=== PATIENT | female | born 1990 | race Caucasian/White ===

== ENCOUNTER 2023-02-28 20:31 | Emergency (ER) | payer MEDICAID, SELFPAY ==
[2023-02-28 20:46] VITALS: BP 144/88; PULSE 74; RESP 18; TEMP 36.6; O2SAT 98; BMI 33.5
[2023-02-28 21:00] VITALS: BP 145/70; PULSE 67; O2SAT 98
--- NOTE | 2023-02-28 21:09 | PC.NURSE ---
rounded on pt nothing needed at this time,call light at bs
--- NOTE | 2023-02-28 21:10 | HMH.EDGENADL ---
Discharge Plan Disposition Patient Disposition: Home, Self-Care Condition: Good Referrals Follow up/Referrals: Davion Adrian [Primary Care Provider] - See instructions Activity Restrictions/Add. Instructions Additional Instructions/Restrictions: Take Tylenol 1000 mg every 6 hours (4 times daily) and ibuprofen 400 mg every 6 hours (4 times daily) as needed with food and water to prevent GI upset and kidney damage. If you have any worsening of your condition or any other concerning signs or symptoms, return to the emergency department or your primary care doctor for further evaluation. Clinical Impressions Clinical Impression: Migraine Stand Alone Forms Stand Alone Forms: Work/School Release Instructions Patient Instructions: DI for Migraine Discharge ED Provider: Tcaos Thompson General Adult HPI General Chief complaint: Headache Stated complaint: headaches Time Seen by Provider: 02/28/23 20:45 Mode of Arrival: Ambulatory Source of Information: Patient Limitations: No Limitations Description of Symptoms (Recalled from ER Triage Doc. by RN): pt states she has had a ALEJANDRO for the past ten days. pt c/o pressure in her forehead, sinuses, teeth, bilateral ear aches, and nausea. pt states pain is 9/10 pt state she went to [facility] ED on 02/25 and saw her pcp on 02/26. pcp dx with sinus ALEJANDRO and put her on amoxicillin and steroids. History of Present Illness HPI narrative: This is a 32-year-old female with no past medical history presenting with headache. Headache started about 10 days prior to arrival. Has been waxing and waning, but currently severe in intensity, 8-9 out of 10, does not radiate. Associated with frontal pain, dental pain. She denies vision changes, difficulty or pain with range of motion neck, fevers or chills, vomiting, abdominal or chest pain, rash, any head trauma, or any other concerns. Currently taking antibiotic and steroid for presumed sinusitis. Related Data Allergies Allergy/AdvReac Type Severity Reaction Status Date / Time No Known Allergies Allergy Verified 02/28/23 20:55 [facility] Disclaimer: The information contained in this section may have been updated after the patient was seen, as this information can be updated by other users. Social History (Updated 02/28/23 @ 22:50 by Tacos Thompson MD) Smoking Status: Never smoker alcohol intake: never current occupational status: employed Travel in the last 8 weeks: None ROS Obtained: Yes All systems reviewed & no additional complaints except as documented Physical Exam General General appearance: alert, in no apparent distress and other ( ) Head Head exam: atraumatic and normocephalic Eye Eye exam: Present normal appearance, PERRL and EOMI ENT ENT exam: Present mucous membranes moist Neck Neck exam: Present normal inspection, full ROM and trachea midline Respiratory Respiratory exam: Absent respiratory distress, wheezes, stridor, accessory muscle use or prolonged expiratory phase Cardiovascular Cardiovascular exam: Present regular rate and normal rhythm Abdominal Exam Abdominal exam: Present soft; Absent distention, tenderness, guarding, rebound, rigidity or normal bowel sounds Extremities Exam Extremities exam: Absent edema Neurological Exam Neurological exam: Present alert, oriented X3, CN II-XII intact and normal gait; Absent motor sensory deficit Skin Skin exam: Present warm and dry; Absent diaphoresis or erythema Medical Decision Making Medical Records Medical records reviewed: Yes I reviewed the patient's medical records. Davy Inquiry Pt receiving controlled substance: No Davy was queried for this patient: No Vital Signs: 02/28/23 20:46 02/28/23 21:00 02/28/23 21:30 Temperature 97.8 F Temperature Source Oral Pulse Rate 67 61 Pulse Rate [Right] 74 Respiratory Rate 18 Blood Pressure 145/70 H 131/85 Blood Pressure [Right Arm] 144/88 H Blood Pressure Mean 96 98 Blood Pressure Mean
--- NOTE | 2023-02-28 21:12 | ECG_ITS ---
APPROVED REPORT Exam: Resting ECG HR:57 bpm ECG Measurements Heart Rate 57 AXES AK 151 P 50 QRSd 94 QRS 56 QT 421 T 30 QTc 416 Conclusion SINUS BRADYCARDIA BORDERLINE ECG UNCONFIRMED REPORT Electronically signed by : Swapnil Ron MD 03/01/2023 16:17:01
[2023-02-28 21:30] VITALS: BP 131/85; PULSE 61; O2SAT 98
[2023-02-28 21:41] VITALS: BP 151/95; PULSE 74; O2SAT 96
[2023-02-28 22:01] VITALS: BP 127/87; PULSE 68; O2SAT 98
--- NOTE | 2023-02-28 22:43 | PC.NURSE ---
bedside with pt who states she is feeling better
[2023-02-28 23:06] VITALS: BP 128/72; PULSE 76; RESP 16; TEMP 36.7
== END 2023-02-28 23:13 | disposition home or self-care (01) ==
PROVIDERS: Emergency Provider Emergency Medicine; PCP Family Medicine
DX: G43.919 Migraine, unspecified, intractable, without status migrainosus (principal)
CPT/HCPCS: 93005; 93041; 96361; 96374; 96375; 99284; J0131

== ENCOUNTER → 2023-05-20 23:49 | Outpatient (CLI) | payer MEDICAID, SELFPAY ==
[2023-05-20 18:25] LABS: Alanine Aminotransferase 21 U/L (12-78); Albumin Level 4.1 g/dl (3.5-5.0); Albumin/Globulin Ratio 1.4 (1.1-1.8); Alkaline Phosphatase 49 U/L (38-126); Anion Gap 12.9 mEq/L (5-15); Aspartate Amino Transferase 30 U/L (14-36); Bilirubin,Total 0.3 mg/dl (0.2-1.3); Blood Urea Nitrogen 15 mg/dl (7-17); Calcium 9.4 mg/dl (8.4-10.2); Carbon Dioxide 26 mmol/L (22.0-30.0); Chloride 107 mmol/L (98-107); Chol/HDL Ratio 3.6 (1-3.5); Cholesterol 157 mg/dl (140-200); Estimated Glomerular Filt Rate 83 ml/min (>60); GFR (African American) 101 ML/MIN (>60); Glucose 91 mg/dl (74-100); HDL Cholesterol 44 mg/dl (40-60); Potassium 3.9 mmoL/L (3.5-5.1); Sodium 142 mmol/L (136-145); Total Protein,Serum 7.1 g/dl (6.3-8.2); Triglycerides 96 mg/dl (30-150); VLDL Cholesterol 19 mg/dL (0-40)
[2023-05-20 18:36] LABS: Direct LDL Cholesterol 90.99 mg/dL (100-129)
[2023-05-20 18:39] LABS: Basophils # 0.1 K/mm3 (0-0.2); Eosinophils # 0.2 K/mm3 (0.0-0.4); Eosinophils % 2.4 % (0.1-12.0); Hematocrit 38.7 % (37.0-47.0); Lymphocytes # 2.9 K/mm3 (0.7-4.5); Lymphocytes % 33.2 % (10-50); Mean Corpuscular HGB Conc 33.6 g/dL (31.8-35.4); Mean Corpuscular Hemoglobin 31.2 pg (27.0-31.2); Mean Platelet Volume 9.9 fl (7.4-10.4); Monocytes # 0.7 K/mm3 (0.1-1.0); Monocytes % 7.6 % (1.7-9.3); Neutrophils # 4.8 K/mm3 (1.8-7.8); Neutrophils % 55.8 % (37.0-80.0); Platelet Count 296 K/mm3 (142-424); Red Blood Count 4.16 M/mm3 (4.20-5.40); Red Cell Distribution Width 13.1 % (11.5-17.5); White Blood Count 8.6 K/mm3 (4.8-10.8)
[2023-05-20 18:41] LABS: 25-OH Vitamin D, Total 26.2 ng/mL (30-100)
[2023-05-20 18:42] LABS: T4 (Thyroxine) 10.1 ug/dl (5.53-11.0)
[2023-05-20 18:56] LABS: Thyroid Stimulating Hormone 2.76 uIU/mL (0.465-4.68)
== END ==
LOC: LAB.DROPOF 23:50
PROVIDERS: PCP Family Medicine; Visit Provider Emergency Medicine
DX: E55.9 Vitamin D deficiency, unspecified (principal); R53.83 Other fatigue; Z68.35 Body mass index [BMI] 35.0-35.9, adult
CPT/HCPCS: 80053; 80061; 82306; 84436; 84443; 85025

== ENCOUNTER → 2023-06-18 14:50 | Outpatient (CLI) | payer MEDICAID, SELFPAY ==
[2023-06-18 14:13] LABS: Amphetamine/Metha Screen,Urine Positive ng/ml (<1000)
[2023-06-18 14:14] LABS: Barbiturates Screen,Urine Negative ng/ml (<200); Benzodiazepines Screen,Urine Negative ng/ml (<200)
[2023-06-18 14:17] LABS: Cannabinoid Screen,Urine Positive ng/ml (<50)
[2023-06-18 14:18] LABS: Cocaine Screen,Urine Negative ng/ml (<300); Methadone Screen,Urine Negative ng/ml (<300)
[2023-06-18 14:19] LABS: Opiate Screen,Urine Negative ng/ml (<300); Phencyclidine Screen,Urine Negative ng/ml (<25)
== END ==
PROVIDERS: PCP Family Medicine; Visit Provider Emergency Medicine
DX: F90.9 Attention-deficit hyperactivity disorder, unspecified type (principal)
CPT/HCPCS: 80305